=== PATIENT | female | born 1995 | race Caucasian/White ===

== ENCOUNTER 2021-02-24 10:08 | Emergency (ER) | payer OTHER ==
[2021-02-24] MEDS ORDERED: BACITRACIN3.5 GM OU (10:54)
[2021-02-24] MEDS ORDERED: CEPHALEXIN500 MG PO (10:54)
== END 2021-02-24 11:03 | disposition home or self-care (01) ==
LOC: FER 10:08
DX: S01.111A Laceration without foreign body of right eyelid and periocular area, initial encounter (principal); W01.0XXA Fall on same level from slipping, tripping and stumbling without subsequent striking against object, initial encounter; Y92.009 Unspecified place in unspecified non-institutional (private) residence as the place of occurrence of the external cause
CPT/HCPCS: 99283